=== PATIENT | female | born 1990 | race African-American/Black ===

== ENCOUNTER 2016-09-20 16:42 | Emergency (ER) | payer OTHER ==
[~2016-09-20] VITALS: Ht 160 cm; Wt 80.7 kg
[2016-09-20 16:52] VITALS: BP 117/75
[2016-09-20] MEDS ORDERED: Emitricitabine/Tenofovir 200/300mg tab PO ONE (17:30)
[2016-09-20] MEDS ORDERED: Dolutegravir Sodium 50mg tab ORAL ONE (17:30)
[2016-09-20] MEDS ORDERED: TIVICAY50 MG ORAL (17:32)
[2016-09-20] MEDS ORDERED: TRUVADA 200 MG1 EAC1 ORAL (17:32)
[2016-09-20 17:37] VITALS: BP 117/75
[2016-09-20 17:46] LABS: BASOPHILS % (AUTO) 1.4 % (0.0-2.0); EOSINOPHILS % (AUTO) 2.6 % (0.0-3.0); LYMPHOCYTES % (AUTO) 45.7 % (20.0-45.0); MEAN CORPUSCULAR HEMOGLOBIN 30.2 PG (27.0-31.0); MEAN CORPUSCULAR HGB CONC 33.2 G/DL (32.0-36.0); MEAN CORPUSCULAR VOLUME 91 FL (80-99); MONOCYTES % (AUTO) 6.6 % (1.0-10.0); NEUTROPHILS % (AUTO) 43.6 % (45.0-75.0); PLATELET COUNT 291 K/UL (150-450); RED BLOOD COUNT 4.71 M/UL (4.20-5.40); RED CELL DISTRIBUTION WIDTH 11.6 % (11.6-14.8); WHITE BLOOD COUNT 4.9 K/UL (4.8-10.8)
[2016-09-20 18:05] LABS: ALANINE AMINOTRANSFERASE 16 U/L (3-33); AMYLASE 54 U/L (10-110); ANION GAP 14 (5-15); ASPARTATE AMINO TRANSFERASE 17 U/L (5-40); BILIRUBIN,DIRECT 0.1 mg/dL (0.1-0.3); CALCIUM 9.3 mg/dL (8.6-10.2); CARBON DIOXIDE 26 mEQ/L (20-30); CHLORIDE 98 mEQ/L (98-107); CREATININE 0.8 mg/dL (0.5-0.9); GLOMERULAR FILTRATION RATE > 60 mL/min (>60); HEMOLYSIS 10; PHOSPHORUS 3.6 mg/dL (2.5-4.8); POTASSIUM 3.9 mEQ/L (3.4-4.9); SODIUM 138 mEQ/L (135-145); TOTAL PROTEIN 7.5 g/dL (6.6-8.7)
--- NOTE | 2016-09-20 19:23 | Emergency Room Report ---
History of Present Illness General Chief Complaint: General Complaint Source: Patient Present Illness HPI 26-year-old female presents ED for evaluation. Patient states that she was accidentally exposed to HIV today. States that she had sex with her partner who is HIV positive however the condom broke. Patient [facility] to [facility] today and had a rapid HIV test which was negative. Patient was told to come to ER for post exposure prophylaxis. Patient states she feels fine. Denies any fevers or chills. Denies nausea or vomiting. No aggravating relieving factors. Denies any other associated symptoms Allergies: Coded Allergies: No Known Allergies (Unverified , 09/20/16) Patient History Past Medical History: none Past Surgical History: none Pertinent Family History: none Social History: Denies: alcohol use, drug use, smoking Last Menstrual Period: 08/30/16 Now: No Immunizations: UTD Reviewed Nursing Documentation: PMH: Agreed, PSxH: Agreed Nursing Documentation-PMH Past Medical History: No Stated History Review of Systems All Other Systems: negative except mentioned in HPI Physical Exam Vital Signs Date Time Temp Pulse Resp B/P Pulse Ox O2 Delivery O2 Flow Rate FiO2 09/20/16 16:46 98.6 77 16 117/75 99 Room Air Sp02 EP Interpretation: reviewed, normal General Appearance: no apparent distress, alert, GCS 15, non-toxic Head: normocephalic Eyes: bilateral eye PERRL, bilateral eye normal inspection ENT: hearing grossly normal, normal pharynx, no angioedema, normal voice Neck: full range of motion, supple/symm/no masses Respiratory: chest non-tender, lungs clear, normal breath sounds, speaking full sentences Cardiovascular #1: regular rate, rhythm, no edema Cardiovascular #2: 2+ carotid (R), 2+ carotid (L), 2+ radial (R), 2+ radial (L) , 2+ dorsalis pedis (R), 2+ dorsalis pedis (L) Gastrointestinal: normal bowel sounds, non tender, soft, non-distended, no guarding, no rebound Rectal: deferred Genitourinary: normal inspection, no CVA tenderness Musculoskeletal: back normal, gait/station normal, normal range of motion, non- tender Neurologic: alert, oriented x3, responsive, motor strength/tone normal, sensory intact, speech normal Psychiatric: judgement/insight normal, memory normal, mood/affect normal, no suicidal/homicidal ideation Reflexes: 3+ bicep (R), 3+ bicep (L), 3+ tricep (R), 3+ tricep (L), 3+ knee (R) , 3+ knee (L) Skin: normal color, no rash, warm/dry, well hydrated Lymphatic: no adenopathy Medical Decision Making Diagnostic Impression: Primary Impression: Exposure to HIV ER Course 26-year-old female presents to ED for post exposure prophylaxis. Had intercourse with her boyfriend who is HIV positive Patient placed on stretcher. After initial history physical exam reveals a young female in no acute distress. Physical exam unremarkable. Agreed that patient should be started on post exposure prophylaxis. However I do explained to the patient that she does need baseline labs including LFTs. I ordered labs which included hepatitis panel and rapid HIV test. HIV test negative. I ordered patient truvada and tivicay here in ER. She will be given one month prescription for each medication. I explained to patient that she does the to followup with PMD or HIV clinic in about 2 weeks to have labs redrawn Diagnoses- exposure to HIV stable and discharged to home with Rx Truvada Tivicay. Followup with PMD/HIV clinic. Return to ED if symptoms recur or worsen Labs Test 09/20/16 17:18 White Blood Count 4.9 K/UL (4.8-10.8) Red Blood Count 4.71 M/UL (4.20-5.40) Hemoglobin 14.2 G/DL (12.0-16.0) Hematocrit 42.9 % (37.0-47.0) Mean Corpuscular Volume 91 FL (80-99) Mean Corpuscular Hemoglobin 30.2 PG (27.0-31.0) Mean Corpuscular Hemoglobin Concent 33.2 G/DL (32.0-36.0) Red Cell Distribution Width 11.6 % (11.6-14.8) Platelet Count 291 K/UL (150-450) Mean Platelet Volume 6.0 FL (6.5-10.1) Neutrophils (%) (Auto) 43.6 % (45.0-75.0) Lymphocytes (%) (Auto) 45.7 % (20.0-45.0) Monocytes (%) (Auto) 6.6 % (1.0-10.0) Eosinophils (%) (Auto) 2.6 % (0.0-3.0) Basophils (%) (Auto) 1.4 % (0.0-2.0) Urine HCG, Qualitative Negative Sodium Level 138 mEQ/L (135-145) Potassium Level 3.9 mEQ/L (3.4-4.9) Chloride Level 98 mEQ/L (98-107) Carbon Dioxide Level 26 mEQ/L (20-30) Anion Gap 14 (5-15) Blood Urea Nitrogen 12 mg/dL (7-23) Creatinine 0.8 mg/dL (0.5-0.9) Estimat Glomerular Filtration Rate > 60 mL/min (>60) Glucose Level 102 mg/dL (74-106) Calcium Level 9.3 mg/dL (8.6-10.2) Phosphorus Level 3.6 mg/dL (2.5-4.8) Total Bilirubin 0.3 mg/dL (0.0-1.2) Direct Bilirubin 0.1 mg/dL (0.1-0.3) Aspartate Amino Transf (AST/SGOT) 17 U/L (5-40) Alanine Aminotransferase (ALT/SGPT) 16 U/L (3-33) Alkaline Phosphatase 48 U/L (35-104) Total Protein 7.5 g/dL (6.6-8.7) Albumin 4.5 g/dL (3.5-5.2) Amylase Level 54 U/L (10-110) HIV (1&2) Antibody Rapid Negative (NEGATIVE) Last Vital Signs Date Time Temp Pulse Resp B/P Pulse Ox O2 Delivery O2 Flow Rate FiO2 09/20/16 17:37 98.6 80 16 117/75 99 Room Air Status: improved Disposition: HOME, SELF-CARE Condition: Stable Scripts Dolutegravir Sodium (Tivicay) 50 Mg Tablet 50 MG ORAL DAILY, #28 TAB Prov: JAYDEN MIRANDA M.D. 09/20/16 Emtricitabine/Tenofovir 200-300MG* (TRUVADA 200-300MG*) 1 Each Tablet 1 TAB ORAL DAILY, #28 TAB Prov: JAYDEN MIRANDA M.D. 09/20/16 Patient Instructions: HIV Antibody Test JAYDEN MIRANDA M.D. Sep 20, 2016 19:23
== END 2016-09-20 17:37 | disposition home or self-care (01) ==
LOC: EMR 17:06
DX: Z20.6 Contact with and (suspected) exposure to human immunodeficiency virus [HIV] (principal)
CPT/HCPCS: 36415; 80069; 80076; 81025; 82150; 85025; 86703; 86803; 87517; 99284

== ENCOUNTER 2016-11-12 18:15 | Emergency (ER) | payer OTHER ==
[~2016-11-12] VITALS: Ht 160 cm; Wt 77.1 kg
[~2016-11-12 18:15] MED LIST: TIVICAY50 MG ORAL; TRUVADA 200 MG1 EAC1 ORAL
--- NOTE | 2016-11-12 19:14 | Emergency Room Report ---
History of Present Illness General Chief Complaint: Female Urogenital Problems Source: Patient Present Illness HPI 26-year-old female presents to emergency Department complaining of right vaginal discharge with a foul smell x2 days. Patient denies recent unprotected intercourse. Patient reports history of Trichomonas. Patient denies itching. Patient reports frequency and mild urgency denies dysuria hematuria or vaginal bleeding. Patient denies . Patient denies nausea vomiting fevers or chills. She denies abdominal pain, rashes or vaginal lesions . Denies CP, Palpitations, LOC, AMS, dizziness, Changes in Vision, Sensation, paresthesias, or a sudden severe headache. Allergies: Coded Allergies: No Known Allergies (Unverified , 09/20/16) Patient History Past Medical History: see triage record Past Surgical History: none Pertinent Family History: none Now: No Immunizations: UTD Reviewed Nursing Documentation: PMH: Agreed, PSxH: Agreed Nursing Documentation-PMH Past Medical History: No Stated History Review of Systems All Other Systems: negative except mentioned in HPI Physical Exam Vital Signs Date Time Temp Pulse Resp B/P Pulse Ox O2 Delivery O2 Flow Rate FiO2 11/12/16 18:32 97.5 65 20 126/73 99 Room Air Sp02 EP Interpretation: reviewed, normal General Appearance: no apparent distress, alert, GCS 15, non-toxic Head: normocephalic, atraumatic Eyes: bilateral eye PERRL, bilateral eye normal inspection ENT: hearing grossly normal, normal pharynx, no angioedema, normal voice Neck: full range of motion, supple/symm/no masses Respiratory: chest non-tender, lungs clear, normal breath sounds, speaking full sentences Cardiovascular #1: regular rate, rhythm, no edema Gastrointestinal: normal bowel sounds, non tender, soft, no guarding, no rebound Rectal: deferred Genitourinary: normal inspection, no CVA tenderness, adnexa normal, bladder normal, cervix normal, other - no CMT, no strawberry cervix, white-yellow d/c noted. no lesions Musculoskeletal: back normal, gait/station normal, normal range of motion, non- tender, no calf tenderness Neurologic: alert, oriented x3, responsive, motor strength/tone normal, sensory intact, speech normal Psychiatric: judgement/insight normal, memory normal, mood/affect normal, no suicidal/homicidal ideation Skin: normal color, no rash, warm/dry, well hydrated Lymphatic: no adenopathy Medical Decision Making PA Attestation Dr. Lim is my supervising Physician whom patient management has been discussed with. Diagnostic Impression: Primary Impression: Vaginal discharge Additional Impressions: Trichomonas infection Bacterial vaginosis UTI (urinary tract infection) Qualified Codes: N30.00 - Acute cystitis without hematuria ER Course 26-year-old female presents to emergency Department complaining of right vaginal discharge with a foul smell x2 days. Patient denies recent unprotected intercourse. Patient reports history of Trichomonas. Patient denies itching. Patient reports frequency and mild urgency denies dysuria hematuria or vaginal bleeding. Patient denies . Patient denies nausea vomiting fevers or chills. She denies abdominal pain, rashes or vaginal lesions . -Pt .does not want to be tested for G&C or treated. Ddx considered but are not limited to UTi , STI, G & C, trichomonas, Vaginitis , cervicitis, Yeast, cellulitis. Vital signs: are WNL, pt. is afebrile H&PE are most consistent with vaginitis, will r/o trich and yeast. ORDERS: - UA: WBC's and bacteria indicating UTI -Wet mount: positive for Trich, clue cells, bacteria.. no yeast. ED INTERVENTIONS: -pt. does not want prophylactic G &C treatment. DISCHARGE: At this time pt. is stable for d/c to home. Will provide printed patient care instructions, and any necessary prescriptions. Care plan and follow up instructions have been discussed with the patient prior to discharge. Labs Test 11/12/16 18:30 Urine Color Pale yellow Urine Appearance Clear Urine pH 6 (4.5-8.0) Urine Specific [place] 1.010 (1.005-1.035) Urine Protein Negative (NEGATIVE) Urine Glucose (UA) Negative (NEGATIVE) Urine Ketones Negative (NEGATIVE) Urine Occult Blood Negative (NEGATIVE) Urine Nitrite Negative (NEGATIVE) Urine Bilirubin Negative (NEGATIVE) Urine Urobilinogen Normal MG/DL (0.0-1.0) Urine Leukocyte Esterase 2+ (NEGATIVE) Urine RBC 2-4 /HPF (0 - 2) Urine WBC 5-10 /HPF (0 - 2) Urine Squamous Epithelial Cells Moderate /LPF (NONE/OCC) Urine Bacteria Moderate /HPF (NONE) Last Vital Signs Date Time Temp Pulse Resp B/P Pulse Ox O2 Delivery O2 Flow Rate FiO2 11/12/16 18:32 97.5 65 20 126/73 99 Room Air Disposition: HOME, SELF-CARE Condition: Stable Scripts Fluconazole (FLUCONAZOLE) 100 Mg Tablet 100 MG ORAL DAILY for 2 Days, #2 TAB 0 Refills Prov: Pam Bryan 11/12/16 Metronidazole* (FLAGYL*) 500 Mg Tablet 500 MG ORAL BID for 7 Days, #14 TAB 0 Refills Prov: Pam Bryan 11/12/16 Nitrofurantoin Monohyd/M-Cryst* (MACROBID 100 MG*) 100 Mg Capsule 100 MG ORAL EVERY 12 HOURS for 5 Days, #10 CAP Prov: Pam Bryan 11/12/16 Patient Instructions: Bacterial Vaginosis, [id number], Trichomonas Test, Urinary Tract Infection Additional Instructions: Take medications as directed. Follow up with PCP/ OBGYN in 3-5 days Return sooner to ED if new symptoms occur, or current symptoms become worse. - Please note that this Emergency Department Report was dictated using [employer] support administrator technology software, occasionally this can lead to erroneous entry secondary to interpretation by the dictation equipment. Pam Bryan Nov 12, 2016 19:14
[2016-11-12 19:26] LABS: APPEARANCE,URINE CLEAR; KETONES,URINE NEGATIVE (NEGATIVE); LEUKOCYTE ESTERASE ,URINE 2+ (NEGATIVE); NITRITE,URINE NEGATIVE (NEGATIVE); PH,URINE 6 (4.5-8.0); PROTEIN,URINE NEGATIVE (NEGATIVE); UROBILINOGEN,URINE NORMAL MG/DL (0.0-1.0)
[2016-11-12 20:08] LABS: BACTERIA,URINE MODERATE /HPF; SQUAMOUS EPITHELIAL CELL,UR MODERATE /LPF (NONE/OCC)
[2016-11-12] MEDS ORDERED: NITROFURANTOIN100 M2 ORAL ×2 (20:34→20:47)
[2016-11-12] MEDS ORDERED: FLUCONAZOLE100 MG ORAL ×2 (20:34→20:47)
[2016-11-12] MEDS ORDERED: METRONIDAZOLE500 MG ORAL ×2 (20:34→20:47)
[2016-11-12 20:57] VITALS: BP 129/75
[2016-11-12 20:59] VITALS: BP 129/75
== END 2016-11-12 21:01 | disposition home or self-care (01) ==
LOC: EMR 19:45
DX: N76.0 Acute vaginitis (principal); B96.89 Other specified bacterial agents as the cause of diseases classified elsewhere; N30.00 Acute cystitis without hematuria
CPT/HCPCS: 81003; 87086; 87210; 99284

== ENCOUNTER 2017-01-08 18:56 | Emergency (ER) | payer OTHER ==
[~2017-01-08] VITALS: Ht 160 cm; Wt 78.9 kg
[~2017-01-08 18:56] MED LIST changes: +FLUCONAZOLE100 MG ORAL; +METRONIDAZOLE500 MG ORAL; +NITROFURANTOIN100 M2 ORAL
[2017-01-08] MEDS ORDERED: NKM (19:20)
[2017-01-08 19:30] VITALS: BP 119/76
[2017-01-08] MEDS ORDERED: AMOXICILLIN500 MG ORAL (19:35)
[2017-01-08 19:47] VITALS: BP 119/76
--- NOTE | 2017-01-08 21:51 | Emergency Room Report ---
History of Present Illness General Chief Complaint: Sore Throat Source: Patient Present Illness [facility] The patient is a 26-year-old female presenting for sore throat for the past 2 days. She denies any sick contacts or recent travel. Pain is described as an 8 /10 dull ache to the back of the throat and does not radiate. It is worse with swallowing. She denies any other symptoms including fever, chills, productive cough, shortness of breath Allergies: Coded Allergies: No Known Allergies (Unverified , 09/20/16) Patient History Past Medical History: see triage record Pertinent Family History: none Last Menstrual Period: December Reviewed Nursing Documentation: PMH: Agreed, PSxH: Agreed Nursing Documentation-PMH Past Medical History: No Stated History Review of Systems All Other Systems: negative except mentioned in HPI Physical Exam Vital Signs Date Time Temp Pulse Resp B/P Pulse Ox O2 Delivery O2 Flow Rate FiO2 01/08/17 19:14 98.6 77 16 119/76 98 Room Air Sp02 EP Interpretation: reviewed, normal General Appearance: no apparent distress, alert, GCS 15, non-toxic Head: normocephalic, atraumatic Eyes: bilateral eye PERRL, bilateral eye normal inspection ENT: hearing grossly normal, no angioedema, normal voice, tonsillar swelling, pharyngeal erythema Neck: full range of motion, supple/symm/no masses Respiratory: chest non-tender, lungs clear, normal breath sounds, no wheezing, speaking full sentences Cardiovascular #1: regular rate, rhythm, no edema Musculoskeletal: back normal, gait/station normal, normal range of motion, non- tender Neurologic: alert, oriented x3, responsive, motor strength/tone normal, sensory intact, speech normal Psychiatric: judgement/insight normal, memory normal, mood/affect normal, no suicidal/homicidal ideation Skin: normal color, no rash, warm/dry, well hydrated Lymphatic: adenopathy Medical Decision Making PA Attestation Dr. Lim is my supervising physician. Patient management was discussed with my supervising physician Diagnostic Impression: Primary Impression: Pharyngitis, acute Qualified Codes: J02.9 - Acute pharyngitis, unspecified ER Course The patient is a 26-year-old female presenting for sore throat for the past 2 days Differential diagnosis include but not limited to pharyngitis, sinusitis, AOM, bronchitis, PNA Physical exam: Vitals within normal limits. Afebrile. No apparent distress HEENT exam: There is bilateral tonsillar edema, erythema Uvula midline. Moist mucous membranes. There is bilateral cervical lymphadenopathy. Lungs are clear to auscultation bilaterally Skin is warm and dry. No rash The patient will be discharged home with a prescription for amoxicillin and is given ER precautions. Patient will followup with primary care Last Vital Signs Date Time Temp Pulse Resp B/P Pulse Ox O2 Delivery O2 Flow Rate FiO2 01/08/17 19:30 98.6 16 119/76 98 Room Air 01/08/17 19:14 77 Status: improved Disposition: HOME, SELF-CARE Condition: Improved Scripts Amoxicillin* (AMOXIL*) 500 Mg Capsule 500 MG ORAL Q12HR, #20 CAP Prov: HORACIO PIERCE 01/08/17 Referrals: [facility] (PCP) Patient Instructions: Sore Throat Additional Instructions: I discussed my findings with the patient. All questions and concerns have been answered. Treatment and medication compliance have been addressed. I advised the patient that they need to follow up with PMD in 3-5 days. Return to ED if pain remains or worsens, cough worsens or remains, you notice blood in your sputum, you notice wheezing, you experience a fever, or if needed for any reason. Patient verbalized understanding of discharge instructions. HORACIO PIERCE January 08, 2017 21:51
== END 2017-01-08 19:47 | disposition home or self-care (01) ==
LOC: EMR 19:45
DX: J02.9 Acute pharyngitis, unspecified (principal)
CPT/HCPCS: 99283

== ENCOUNTER 2017-01-27 20:40 | Emergency (ER) | payer OTHER ==
[~2017-01-27] VITALS: Ht 160 cm; Wt 79.4 kg
[~2017-01-27 20:40] MED LIST changes: +AMOXICILLIN500 MG ORAL; +NKM
[2017-01-27 21:00] VITALS: BP 126/78
[2017-01-27] MEDS ORDERED: Emitricitabine/Tenofovir 200/300mg tab ORAL ONE (21:15)
[2017-01-27] MEDS ORDERED: Isentress 400mg tab ORAL ONE (21:15)
[2017-01-27] MEDS ORDERED: TRUVADA 200 MG1 EAC1 ORAL (21:26)
[2017-01-27] MEDS ORDERED: ISENTRESS100 MG ORAL (21:26)
--- NOTE | 2017-01-27 21:26 | Emergency Room Report ---
History of Present Illness General Chief Complaint: General Complaint Source: Patient Present Illness HPI Is a 26-year-old female with no past medical history. She presents with chief complaint of HIV exposure. She's been sexually active with her boyfriend for almost a year. He is HIV positive but not on medication. Supposedly his viral load is undetectable. 40 hours ago they had sexual intercourse. He was wearing a condom but it broke. Patient has no other symptom. Here for HIV medication. She had a before without any side effects. Allergies: Coded Allergies: No Known Allergies (Unverified , 09/20/16) Patient History Past Medical History: none, see triage record, old chart reviewed Past Surgical History: none Pertinent Family History: none Social History: Denies: smoking Last Menstrual Period: yesterday Now: No Immunizations: other Reviewed Nursing Documentation: PMH: Agreed, PSxH: Agreed Nursing Documentation-PMH Past Medical History: No Stated History Review of Systems Eye: Denies: blurred vision, eye pain ENT: Denies: ear pain, nose congestion, throat swelling Respiratory: Denies: cough, shortness of breath Cardiovascular: Denies: chest pain, palpitations Gastrointestinal: Denies: abdominal pain, diarrhea, nausea, vomiting Musculoskeletal: Denies: back pain, joint pain Skin: Denies: rash Neurological: Denies: headache, numbness Endocrine: Denies: increased thirst, increased urine Hematologic/Lymphatic: Denies: easy bruising All Other Systems: negative except mentioned in HPI Physical Exam Vital Signs Date Time Temp Pulse Resp B/P Pulse Ox O2 Delivery O2 Flow Rate FiO2 01/27/17 20:48 98.4 68 16 126/78 98 Room Air vitals normal Sp02 EP Interpretation: reviewed, normal General Appearance: well appearing, no apparent distress, alert Head: normocephalic, atraumatic Eyes: bilateral eye EOMI, bilateral eye PERRL ENT: hearing grossly normal, normal pharynx Neck: full range of motion, supple, no meningismus Respiratory: chest non-tender, lungs clear, normal breath sounds Cardiovascular #1: regular rate, rhythm, no murmur Gastrointestinal: normal bowel sounds, non tender, no mass, no organomegaly, no bruit, non-distended Musculoskeletal: back normal, gait/station normal, normal range of motion Psychiatric: mood/affect normal Skin: warm/dry Medical Decision Making Diagnostic Impression: Primary Impression: Exposure to HIV ER Course She with HIV exposure. Will go ahead and put on PEP. We'll DC home Last Vital Signs Date Time Temp Pulse Resp B/P Pulse Ox O2 Delivery O2 Flow Rate FiO2 01/27/17 20:48 98.4 68 16 126/78 98 Room Air Status: unchanged Disposition: HOME, SELF-CARE Condition: Stable Scripts Raltegravir Potassium (ISENTRESS) 100 Mg Tab.chew 100 MG ORAL TWICE A DAY, #60 TAB Prov: NAN GARRIDO M.D. 01/27/17 Emtricitabine/Tenofovir 200-300MG* (TRUVADA 200-300MG*) 1 Each Tablet 1 TAB ORAL DAILY, #30 TAB Prov: NAN GARRIDO M.D. 01/27/17 Referrals: [facility] (PCP) Additional Instructions: Followup with your doctor or clinic for recheck any HIV status. Return if symptom worsen. Followup in one week. NAN GARRIDO M.D. January 27, 2017 21:26
[2017-01-27 21:40] VITALS: BP 126/78
== END 2017-01-27 21:40 | disposition home or self-care (01) ==
LOC: EMR 21:13
DX: Z20.6 Contact with and (suspected) exposure to human immunodeficiency virus [HIV] (principal)
CPT/HCPCS: 86703; 99284

== ENCOUNTER 2017-04-20 17:37 | Emergency (ER) | payer OTHER ==
[~2017-04-20] VITALS: Ht 152.4 cm; Wt 81.6 kg
[~2017-04-20 17:37] MED LIST changes: +ISENTRESS100 MG ORAL
[2017-04-20 17:48] VITALS: BP 117/73
[2017-04-20 18:43] LABS: APPEARANCE,URINE CLEAR; KETONES,URINE NEGATIVE (NEGATIVE); LEUKOCYTE ESTERASE ,URINE 1+ (NEGATIVE); NITRITE,URINE NEGATIVE (NEGATIVE); PH,URINE 6 (4.5-8.0); PROTEIN,URINE NEGATIVE (NEGATIVE); UROBILINOGEN,URINE NORMAL MG/DL (0.0-1.0)
[2017-04-20 18:59] LABS: BACTERIA,URINE FEW /HPF; RBC,URINE 0-2 /HPF (0 - 2); SQUAMOUS EPITHELIAL CELL,UR FEW /LPF (NONE/OCC)
--- NOTE | 2017-04-20 19:08 | Emergency Room Report ---
History of Present Illness General Chief Complaint: Vaginal Source: Patient Present Illness HPI 27-year-old female presents to the emergency department complaining of yellow vaginal discharge with itching, and strong odor x 2 days. Patient reports recent antibiotic use approximately 2 months ago. Patient denies recent unprotected intercourse. Patient denies . Patient denies swollen palpable tender lymph nodes, lesions, rash, abdominal pain, joint pain. She denies dysuria, frequency, hematuria, fevers, chills, nausea, vomiting or . denies hx of STDs. She reports history of atrial vaginosis in the past and is requesting vaginal creams if rx's are necessary. Denies CP, Palpitations, LOC, AMS, dizziness, Changes in Vision, Sensation, paresthesias, or a sudden severe headache. Allergies: Coded Allergies: No Known Allergies (Unverified , 09/20/16) Patient History Past Medical History: see triage record Past Surgical History: none Pertinent Family History: none Last Menstrual Period: last month Now: No Immunizations: UTD Reviewed Nursing Documentation: PMH: Agreed, PSxH: Agreed Nursing Documentation-PMH Past Medical History: No Stated History Review of Systems All Other Systems: negative except mentioned in HPI Physical Exam Vital Signs Date Time Temp Pulse Resp B/P Pulse Ox O2 Delivery O2 Flow Rate FiO2 04/20/17 17:48 98.2 68 18 117/73 98 Room Air Sp02 EP Interpretation: reviewed, normal General Appearance: no apparent distress, alert, GCS 15, non-toxic Head: normocephalic, atraumatic Eyes: bilateral eye PERRL, bilateral eye normal inspection ENT: hearing grossly normal, normal voice Neck: full range of motion Respiratory: lungs clear, normal breath sounds, speaking full sentences Cardiovascular #1: regular rate, rhythm Gastrointestinal: normal bowel sounds, non tender, soft, non-distended, no guarding, no rebound Rectal: deferred Genitourinary: normal inspection, no CVA tenderness, adnexa normal, cervix normal, ext genitalia/vag normal, uterus normal, other - thin yellow-white opaque d/c in the vaginal vault, no CMT. no external lesions or rashes Musculoskeletal: back normal, gait/station normal, normal range of motion, non- tender Neurologic: alert, oriented x3, responsive, motor strength/tone normal, sensory intact, speech normal Psychiatric: judgement/insight normal, memory normal, mood/affect normal Skin: normal color, no rash, warm/dry, well hydrated Lymphatic: no adenopathy Medical Decision Making PA Attestation Dr. Posey is my supervising Physician whom patient management has been discussed with. Diagnostic Impression: Primary Impression: Bacterial vaginosis ER Course 27-year-old female presents to the emergency department complaining of yellow vaginal discharge with itching, and strong odor x 2 days. Patient reports recent antibiotic use approximately 2 months ago. Patient denies recent unprotected intercourse. Patient denies . Patient denies swollen palpable tender lymph nodes, lesions, rash, abdominal pain, joint pain. She denies dysuria, frequency, hematuria, fevers, chills, nausea, vomiting or . denies hx of STDs. She reports history of atrial vaginosis in the past and is requesting vaginal creams if rx's are necessary. Denies CP, Palpitations, LOC, AMS, dizziness, Changes in Vision, Sensation, paresthesias, or a sudden severe headache. Ddx considered but are not limited to UTi , Pyelo, STI, Stone, Cystitis, vaginal laceration, vaginitis. Vital signs: are WNL, pt. is afebrile H& PE are most consistent with: possible BV or yeast vaginitis. ORDERS: - UA labs are attached: unremarkable no evidence of urinary tract infection. -Hcg negative -Vaginal Wet Mount: Mod. WBC, mod clue cells, moderate bacteria, no yeast, no trich, -- Consistent with bacterial vaginosis ED INTERVENTIONS: None required at this time. DISCHARGE: At this time pt. is stable for d/c to home. Will provide printed patient care instructions, and any necessary prescriptions. Care plan and follow up instructions have been discussed with the patient prior to discharge. Labs Test 04/20/17 17:52 Urine Color Pale yellow Urine Appearance Clear Urine pH 6 (4.5-8.0) Urine Specific [place] 1.015 (1.005-1.035) Urine Protein Negative (NEGATIVE) Urine Glucose (UA) Negative (NEGATIVE) Urine Ketones Negative (NEGATIVE) Urine Occult Blood Negative (NEGATIVE) Urine Nitrite Negative (NEGATIVE) Urine Bilirubin Negative (NEGATIVE) Urine Urobilinogen Normal MG/DL (0.0-1.0) Urine Leukocyte Esterase 1+ (NEGATIVE) Urine RBC 0-2 /HPF (0 - 2) Urine WBC 2-4 /HPF (0 - 2) Urine Squamous Epithelial Cells Few /LPF (NONE/OCC) Urine Bacteria Few /HPF (NONE) Urine HCG, Qualitative Negative Last Vital Signs Date Time Temp Pulse Resp B/P Pulse Ox O2 Delivery O2 Flow Rate FiO2 04/20/17 17:48 98.2 68 18 117/73 98 Room Air Disposition: HOME, SELF-CARE Condition: Stable Scripts Metronidazole* (METROGEL-VAGINAL*) 70 Gm Gel.w.appl 1 APPL VAGIN EVERY 12 HOURS for 5 Days, #70 GM Prov: Pam Bryan 04/20/17 Referrals: [facility] (PCP) Patient Instructions: Bacterial Vaginosis Additional Instructions: Take medications as directed. Follow up with a Primary Care Provider in 3-5 days, even if your symptoms have resolved. --Please review list of primary care clinics, if you do not already have a primary care provider Return sooner to ED if new symptoms occur, or current symptoms become worse. - Please note that this Emergency Department Report was dictated using [employer] fixer technology software, occasionally this can lead to erroneous entry secondary to interpretation by the dictation equipment. Pam Bryan Apr 20, 2017 19:08
[2017-04-20] MEDS ORDERED: METROGEL-VAGINA70 G1 VAGIN (19:09)
[2017-04-20 19:20] VITALS: BP 117/73
== END 2017-04-20 19:20 | disposition home or self-care (01) ==
LOC: EMR 18:00
DX: N76.0 Acute vaginitis (principal)
CPT/HCPCS: 58999; 81003; 81025; 87210; 99283

== ENCOUNTER 2017-07-07 22:53 | Emergency (ER) | payer OTHER ==
[~2017-07-07] VITALS: Ht 162.6 cm; Wt 81.6 kg
[~2017-07-07 22:53] MED LIST changes: +METROGEL-VAGINA70 G1 VAGIN
[2017-07-07 23:58] VITALS: BP 113/70
--- NOTE | 2017-07-08 03:26 | Emergency Room Report ---
History of Present Illness General Chief Complaint: Earache Source: Patient Present Illness HPI 27YOF with 2 days right ear pain Pain is intermittent No fever/chills, sore throat, headache, chest pain, SOB No history of frequent ear infection or use of Qtips for hygiene Allergies: Coded Allergies: No Known Allergies (Unverified , 09/20/16) Patient History Past Medical History: none Past Surgical History: none Pertinent Family History: none Social History: Denies: smoking, alcohol use, drug use Last Menstrual Period: Jun 24 Now: No : 1 Immunizations: UTD Reviewed Nursing Documentation: PMH: Agreed, PSxH: Agreed Nursing Documentation-PMH Past Medical History: No Stated History Review of Systems All Other Systems: negative except mentioned in HPI Physical Exam Vital Signs Date Time Temp Pulse Resp B/P (MAP) Pulse Ox O2 Delivery O2 Flow Rate FiO2 07/07/17 22:57 97.2 83 20 113/70 98 Sp02 EP Interpretation: reviewed, normal General Appearance: normal inspection, well appearing, no apparent distress, alert Head: atraumatic ENT: normal ENT inspection, hearing grossly normal, normal pharynx, no angioedema, normal voice, TMs + canals normal, uvula midline Neck: normal inspection, full range of motion, supple, no bony tend Respiratory: normal inspection, lungs clear, normal breath sounds, no respiratory distress, no retraction, no wheezing Cardiovascular #1: regular rate, rhythm, no edema Gastrointestinal: normal inspection, normal bowel sounds, non tender, soft, no guarding, no hernia Genitourinary: no CVA tenderness Musculoskeletal: normal inspection, back normal, normal range of motion, Douglas' s Sign negative Neurologic: normal inspection, alert, responsive, speech normal Psychiatric: normal inspection, judgement/insight normal, mood/affect normal Skin: normal inspection, normal color, no rash Medical Decision Making Diagnostic Impression: Primary Impression: Earache, right ER Course VSS. Afebrile No sign of bacterial infection in ears/oropharynx Reassured patient Advised Motrin as needed for pain PMD followup as needed DC home Last Vital Signs Date Time Temp Pulse Resp B/P (MAP) Pulse Ox O2 Delivery O2 Flow Rate FiO2 07/07/17 23:58 97.2 20 113/70 98 07/07/17 23:58 83 Status: improved Disposition: HOME, SELF-CARE Condition: Improved Referrals: [facility] (PCP) Patient Instructions: JAYSHREE Magaña M.D. Jul 08, 2017 03:26
== END 2017-07-07 23:58 | disposition home or self-care (01) ==
LOC: EMR 23:46
DX: H92.01 Otalgia, right ear (principal)
CPT/HCPCS: 99283

== ENCOUNTER 2017-11-11 14:14 | Emergency (ER) | payer OTHER ==
[~2017-11-11] VITALS: Ht 162.6 cm; Wt 81.6 kg
--- NOTE | 2017-11-11 15:26 | Emergency Room Report ---
History of Present Illness General Chief Complaint: Skin Rash/Abscess Source: Patient Present Illness HPI 27 YO female presents to the ED C/O rash between breasts, darkened hyperpigmentation, intermittently itching. Denies lesions/rashes elsewhere on the body. Denies new medications or body washes or creams. Denies swelling of the lips, tongue , throat or airway. Denies wheezing, or shortness of breath. Denies recent travel, recent illness or ill contacts. denies blisters, oral lesions, or sloughing of the skin. Allergies: Coded Allergies: No Known Allergies (Unverified , 09/20/16) Patient History Past Medical History: see triage record Past Surgical History: none Pertinent Family History: none Last Menstrual Period: 10/16/17 Now: No : 1 Para: 0 Reviewed Nursing Documentation: PMH: Agreed, PSxH: Agreed Nursing Documentation-PMH Past Medical History: No Stated History Review of Systems All Other Systems: negative except mentioned in HPI Physical Exam Vital Signs Date Time Temp Pulse Resp B/P (MAP) Pulse Ox O2 Delivery O2 Flow Rate FiO2 11/11/17 14:47 98.0 7 18 113/71 99 Room Air 98.1 Sp02 EP Interpretation: reviewed, normal General Appearance: no apparent distress, alert, GCS 15, non-toxic Head: normocephalic, atraumatic ENT: hearing grossly normal, no angioedema, normal voice Neck: full range of motion Respiratory: lungs clear, normal breath sounds, no respiratory distress, no wheezing, speaking full sentences Cardiovascular #1: regular rate, rhythm Musculoskeletal: back normal, gait/station normal, normal range of motion, non- tender Neurologic: alert, oriented x3, responsive, motor strength/tone normal, sensory intact, speech normal, grossly normal Psychiatric: judgement/insight normal Skin: normal color, warm/dry, well hydrated, rash - localized well circumscribed hyperpigmented plaque on the anterior chest midline and extends just under each breast. no excoriations, vesicles or blisters. no lesions idenitfied elsewhere. Lymphatic: no adenopathy Medical Decision Making PA Attestation Dr. Lucas is my supervising Physician whom patient management has been discussed with. Diagnostic Impression: Primary Impression: Rash and other nonspecific skin eruption ER Course 27 YO female presents to the ED C/O rash between breasts, darkened hyperpigmentation, intermittently itching. Denies lesions/rashes elsewhere on the body. Denies new medications or body washes or creams. Denies swelling of the lips, tongue , throat or airway. Denies wheezing, or shortness of breath. Denies recent travel, recent illness or ill contacts. denies blisters, oral lesions, or sloughing of the skin. Ddx considered but are not limited to cellulitis, scabies, shingles, varicella, dermatitis, urticaria, eczema, tinea, viral exanthem, SJS Vital signs: are WNL, pt. is afebrile H&PE are most consistent with well circumscribed hyperpigmented plaque will treat for exczema and cover fungi due to anular appearance. ORDERS: none required at this time, the diagnosis is clinical ED INTERVENTIONS: None required at this time. will D/c with triamcinolone and nystatin cream. d/w pt. dermatology follow-up. DISCHARGE: At this time pt. is stable for d/c to home. Will provide printed patient care instructions, and any necessary prescriptions. Care plan and follow up instructions have been discussed with the patient prior to discharge. Last Vital Signs Date Time Temp Pulse Resp B/P (MAP) Pulse Ox O2 Delivery O2 Flow Rate FiO2 11/11/17 14:47 98.0 7 18 113/71 99 Room Air 98.1 Disposition: HOME, SELF-CARE Condition: Stable Scripts Triamcinolone Acet (Triamcinolone Acetonide) 15 Gm Cream..g. 1 APPLIC APPLIC BID, #15 GM 1 Refill Prov: Pam Bryan 11/11/17 Nystatin* (NYSTATIN*) 15 Gm Cream..g. 1 APPLIC TOPIC THREE TIMES A DAY, #15 GM 1 Refill Prov: Pam Bryan.A. 11/11/17 Patient Instructions: Rash Additional Instructions: Take medications as directed. If you notice significant worsening of the rash after using Triamcinolone Discontinue immediately and only use anti-fungal cream. Follow up with a Primary Care Provider or [facility] in 3-5 days, even if your symptoms have resolved. --Please review list of primary care clinics, if you do not already have a primary care provider Return sooner to ED if new symptoms occur, or current symptoms become worse. - Please note that this Emergency Department Report was dictated using [employer] consultant technology software, occasionally this can lead to erroneous entry secondary to interpretation by the dictation equipment. Pam Bryan Nov 11, 2017 15:26
[2017-11-11] MEDS ORDERED: NYSTATIN15 GM TOPIC (15:27)
[2017-11-11] MEDS ORDERED: KENALOG 0.5% CR15 GM APPLIC (15:27)
[2017-11-11 15:34] VITALS: BP 108/70
== END 2017-11-11 15:35 | disposition home or self-care (01) ==
LOC: EMR 15:18
DX: R21 Rash and other nonspecific skin eruption (principal)
CPT/HCPCS: 99284

== ENCOUNTER 2018-07-31 09:31 | Emergency (ER) | payer SELFPAY ==
[~2018-07-31] VITALS: Ht 162.6 cm; Wt 88.5 kg
[~2018-07-31 09:31] MED LIST changes: +KENALOG 0.5% CR15 GM APPLIC; +NYSTATIN15 GM TOPIC
[2018-07-31 09:43] VITALS: BP 119/71
[2018-07-31 10:04] LABS: APPEARANCE,URINE SLIGHTLY CLOUDY; BILIRUBIN, URINE NEGATIVE (NEGATIVE); COLOR,URINE PALE YELLOW; GLUCOSE, URINE (UA) NEGATIVE (NEGATIVE); KETONES,URINE NEGATIVE (NEGATIVE); LEUKOCYTE ESTERASE ,URINE 3+ (NEGATIVE); NITRITE,URINE NEGATIVE (NEGATIVE); PH,URINE 5 (4.5-8.0); PROTEIN,URINE NEGATIVE (NEGATIVE); UROBILINOGEN,URINE NORMAL MG/DL (0.0-1.0)
--- NOTE | 2018-07-31 12:22 | Emergency Room Report ---
History of Present Illness General Chief Complaint: Vaginal Source: Patient Present Illness HPI Patient presents with vaginal discharge for 3 days. She denies any dysuria. It 's white and also fairly clear with foul odor. She's had this problem once before and was told she had vaginosis. Shee was treated with creams. Last menstrual period June 18. Pap within the last year "had some minor abnormality" which she has not follow up on. No fevers, chills, abdominal pain, NVD, rashes, cough, sore throat, headache, anxiety. In December 2016 she was exposed to HIV and put on PEP. Barrier contraception broke with boyfriend who was HIV +. She has HIV meds listed on her Med Recon. Allergies: Coded Allergies: No Known Allergies (Unverified , 07/31/18) Patient History Past Medical History: see triage record Social History: Denies: smoking Social History Narrative co founder and chairman Last Menstrual Period: 06/08/2018 Now: No Reviewed Nursing Documentation: PMH: Agreed; PSxH: Agreed Nursing Documentation-PMH Past Medical History: No Stated History Review of Systems All Other Systems: negative except mentioned in HPI Physical Exam Vital Signs Date Time Temp Pulse Resp B/P (MAP) Pulse Ox O2 Delivery O2 Flow Rate FiO2 07/31/18 09:33 98.2 87 12 119/71 99 Room Air Sp02 EP Interpretation: reviewed, normal General Appearance: well appearing, no apparent distress, GCS 15 Head: normocephalic Eyes: bilateral eye normal inspection, bilateral eye PERRL ENT: moist mucus membranes Neck: supple Respiratory: lungs clear, normal breath sounds Cardiovascular #1: regular rate, rhythm Cardiovascular #2: 2+ radial (R) Gastrointestinal: normal inspection, normal bowel sounds, non tender, no mass, non-distended Genitourinary: no CVA tenderness, other - whit and fraser vaginal d/c, minimal inflammation. External exam only. Musculoskeletal: back normal, gait/station normal, normal range of motion Neurologic: alert, oriented x3, grossly normal Psychiatric: mood/affect normal Skin: normal inspection, warm/dry Medical Decision Making Diagnostic Impression: Primary Impression: Vaginal discharge Additional Impression: UTI (urinary tract infection) Qualified Codes: N30.00 - Acute cystitis without hematuria ER Course Patient with vaginal discharge. DDX yeast, gardnerella, trich, UTI amongst others. Need to exclude . UA with pyuria. Wet mount not identify cause, but based on character of discharge, concern for vaginosis. Discussed findings with patient and need for follow up with Electronic Scanner Operator. Patient stable for outpatient observation and treatment. Laboratory Tests Test 07/31/18 09:50 Urine Color Pale yellow Urine Appearance Slightly cloudy Urine pH 5 (4.5-8.0) Urine Specific [place] 1.015 (1.005-1.035) Urine Protein Negative (NEGATIVE) Urine Glucose (UA) Negative (NEGATIVE) Urine Ketones Negative (NEGATIVE) Urine Blood 1+ (NEGATIVE) H Urine Nitrite Negative (NEGATIVE) Urine Bilirubin Negative (NEGATIVE) Urine Urobilinogen Normal MG/DL (0.0-1.0) Urine Leukocyte Esterase 3+ (NEGATIVE) H Urine RBC 5-10 /HPF (0 - 2) H Urine WBC Tntc /HPF (0 - 2) H Urine Squamous Epithelial Cells Many /LPF (NONE/OCC) H Urine Bacteria Many /HPF (NONE) H Urine HCG, Qualitative Negative (NEGATIVE) Microbiology Date/Time Source Procedure Growth Status 07/31/18 10:40 Vaginal Wet Prep - Final Complete Last Vital Signs Date Time Temp Pulse Resp B/P (MAP) Pulse Ox O2 Delivery O2 Flow Rate FiO2 07/31/18 12:29 98.0 77 15 122/75 99 Room Air Status: improved Disposition: HOME, SELF-CARE Condition: Improved Scripts Metronidazole* (FLAGYL*) 500 Mg Tablet 500 MG ORAL TID, #20 TAB Prov: Arnulfo Posey MD 07/31/18 Nitrofurantoin Monohyd/M-Cryst* (MACROBID 100 MG*) 100 Mg Capsule 100 MG ORAL EVERY 12 HOURS, #14 CAP Prov: Arnulfo Posey MD 07/31/18 Referrals: NOT CHOSEN [facility]/,REFERRING (PCP) Arnulfo Posey MD Jul 31, 2018 12:22
[2018-07-31] MEDS ORDERED: METRONIDAZOLE500 MG ORAL (12:24)
[2018-07-31] MEDS ORDERED: NITROFURANTOIN100 M2 ORAL (12:24)
[2018-07-31 12:29] VITALS: BP 122/75
[2018-07-31] MEDS ORDERED: metroNIDAZOLE 500mg tab ORAL ONE (12:30)
== END 2018-07-31 12:29 | disposition home or self-care (01) ==
LOC: EMR 09:54
DX: N30.00 Acute cystitis without hematuria (principal)
CPT/HCPCS: 81003; 81025; 87086; 87210; 99283

== ENCOUNTER 2019-02-16 20:54 | Emergency (ER) | payer MEDICAID, OTHER ==
[~2019-02-16] VITALS: Ht 160 cm; Wt 87.5 kg
--- NOTE | 2019-02-16 21:20 | NUR ---
ED Nurse Note: PATIENT AMBULATED TO ED WITH RIGHT EARACHE X1 DAY. Pt is AO x 4times, VSS, on room air no distress. ERMD seen Pt at bedside.
[2019-02-16 21:21] VITALS: BP 132/77
[2019-02-16] MEDS ORDERED: OFLOXACIN5 ML RIGHT EAR (21:21)
[2019-02-16 21:27] VITALS: BP 132/77
--- NOTE | 2019-02-16 21:28 | NUR ---
ER DISCHARGE NOTE: Patient is cleared to be discharged per ERMD, pt is aox4, on room air, with stable vital signs. pt was given dc and prescription instructions, pt was able to verbalize understanding, pt id band removed without complications. pt is able to ambulate with steady gait. pt took all belongings.
--- NOTE | 2019-02-17 00:02 | Emergency Room Report ---
History of Present Illness General Chief Complaint: Earache Source: Patient Present Illness HPI 28-year-old female presents ED complaining of right ear pain. Started today. Pain is throbbing, 6 out of 10, nonradiating. Denies fevers or chills. Denies cough. Denies sore throat. Denies sick contacts or recent travel. No other aggravating relieving factors. Denies any other associated symptoms Allergies: Coded Allergies: No Known Allergies (Unverified , 07/31/18) Patient History Past Medical History: none Past Surgical History: none Pertinent Family History: none Social History: Denies: smoking, alcohol use, drug use Last Menstrual Period: 02/07/19 Now: No Immunizations: UTD Reviewed Nursing Documentation: PMH: Agreed; PSxH: Agreed Nursing Documentation-PMH Past Medical History: No Stated History Review of Systems All Other Systems: negative except mentioned in HPI Physical Exam Vital Signs Date Time Temp Pulse Resp B/P (MAP) Pulse Ox O2 Delivery O2 Flow Rate FiO2 02/16/19 20:56 98.2 73 14 122/68 (86) 98 Room Air Sp02 EP Interpretation: reviewed, normal General Appearance: no apparent distress, alert, GCS 15, non-toxic Head: normocephalic Eyes: bilateral eye normal inspection, bilateral eye PERRL ENT: hearing grossly normal, normal pharynx, no angioedema, normal voice, other - R ear canal erythematous/swollen/TTP Neck: full range of motion, supple, no meningismus, supple/symm/no masses Respiratory: normal inspection Cardiovascular #1: normal inspection Gastrointestinal: normal inspection Rectal: deferred Genitourinary: no CVA tenderness Musculoskeletal: normal inspection Neurologic: alert, oriented x3, responsive, motor strength/tone normal, sensory intact, speech normal Psychiatric: normal inspection Skin: normal inspection Lymphatic: normal inspection Medical Decision Making Diagnostic Impression: Primary Impression: Otitis externa Qualified Codes: H60.501 - Unspecified acute noninfective otitis externa, right ear ER Course Hospital Course 28-year-old F presents to ED with pain R ear. Differential diagnoses include: TM perforation, otitis externa, otitis media Clinical course Patient placed on stretcher. After initial history, physical exam reveals a female in no acute distress. R TM ok, ear canal swallows and erythematous and tender to palpation. Left TM unremarkable. Consistent with otitis externa. Discussed findings with patient. Discharged with otic antibiotics. Safe for discharge for close outpatient follow-up. Does not have a PMD. Will provide referrals Diagnosis - otitis externa Stable and discharged to home with Rx ofloxacin otic. Followup with PMD. Return to ED if symptoms recur or worsen Last Vital Signs Date Time Temp Pulse Resp B/P (MAP) Pulse Ox O2 Delivery O2 Flow Rate FiO2 02/16/19 21:27 98.6 77 16 132/77 98 Room Air Status: improved Disposition: HOME, SELF-CARE Condition: Stable Scripts Ofloxacin (OFLOXACIN) 5 Ml Drops 10 DROP RIGHT EAR DAILY for 7 Days, ML Prov: Jose Cordova MD 02/16/19 Referrals: Jamee Sauceda [facility] Patient Instructions: Otitis Externa, [id number] Jose Cordova MD Feb 17, 2019 00:02
== END 2019-02-17 00:13 | disposition home or self-care (01) ==
LOC: EMR 21:17
DX: H60.501 Unspecified acute noninfective otitis externa, right ear (principal)
CPT/HCPCS: 99282

== ENCOUNTER 2019-04-06 20:58 | Emergency (ER) | payer MEDICAID ==
[~2019-04-06] VITALS: Ht 160 cm; Wt 88.5 kg
[~2019-04-06 20:58] MED LIST changes: +OFLOXACIN5 ML RIGHT EAR
--- NOTE | 2019-04-06 21:07 | NUR ---
ED Nurse Note: PT CAME TO ED C/O YELLOW DISCHARGE X 2 DAYS
[2019-04-06 21:08] VITALS: BP 112/77
--- NOTE | 2019-04-06 21:10 | NUR ---
ED Nurse Note: urine specimen sent to lab
[2019-04-06 21:44] LABS: APPEARANCE,URINE SLIGHTLY CLOUDY; BILIRUBIN, URINE NEGATIVE (NEGATIVE); COLOR,URINE PALE YELLOW; GLUCOSE, URINE (UA) NEGATIVE (NEGATIVE); KETONES,URINE NEGATIVE (NEGATIVE); LEUKOCYTE ESTERASE ,URINE 3+ (NEGATIVE); NITRITE,URINE NEGATIVE (NEGATIVE); PH,URINE 6 (4.5-8.0); PROTEIN,URINE NEGATIVE (NEGATIVE); UROBILINOGEN,URINE NORMAL MG/DL (0.0-1.0)
[2019-04-06] MEDS ORDERED: CEPHALEXIN500 MG ORAL (22:00)
[2019-04-06 22:10] VITALS: BP 115/73
--- NOTE | 2019-04-06 22:10 | NUR ---
ER DISCHARGE NOTE: Patient is cleared to be discharged per ERMD, pt is aox4, on room air, with stable vital signs. pt was given dc and prescription instructions, pt was able to verbalize understanding, pt id band removed. pt is able to ambulate with steady gait. pt took all belongings.
--- NOTE | 2019-04-06 23:00 | Emergency Room Report ---
History of Present Illness General Chief Complaint: Female Urogenital Problems Source: Patient Present Illness HPI Patient is a 28-year-old female who presented after increased yellow vaginal discharge. patient reports having recent unprotected sex. She states that she had not been having any dysuria. She reports having which she feels may be a yeast infection. She does not report any recent antibiotics. Allergies: Coded Allergies: No Known Allergies (Unverified , 07/31/18) Patient History Past Medical History: see triage record Last Menstrual Period: 03/19/19 Now: No : 1 Para: 0 Reviewed Nursing Documentation: PMH: Agreed; PSxH: Agreed Nursing Documentation-PMH Past Medical History: No Stated History Review of Systems All Other Systems: negative except mentioned in HPI Physical Exam Vital Signs Date Time Temp Pulse Resp B/P (MAP) Pulse Ox O2 Delivery O2 Flow Rate FiO2 04/06/19 21:02 97.9 83 18 112/77 (89) 97 Room Air General Appearance: well appearing, no apparent distress, alert, GCS 15 Head: normocephalic, atraumatic ENT: hearing grossly normal, normal voice Neck: full range of motion, supple Respiratory: lungs clear, no respiratory distress, speaking full sentences Cardiovascular #1: normal inspection Gastrointestinal: normal inspection Musculoskeletal: normal inspection Neurologic: normal inspection, alert, oriented x3, responsive, normal gait Psychiatric: mood/affect normal Skin: no rash Medical Decision Making Diagnostic Impression: Primary Impression: Vaginal discharge Additional Impression: Urinary tract infection ER Course Present for vaginal discharge. Differential diagnosis include was not limited to yeast infection, bacterial vaginosis, trichomonas, pelvic inflammatory disease among others. Patient has a benign exam and does not appear to require any further imaging or laboratory testing at this time. Patient was offered a pelvic exam which she declined. Patient was noted to have bacteriuria. Patient was given prescription for Keflex. Patient stated she wishes to go elsewhere to get definitive testing.Patient appears to be stable for outpatient evaluation. Patient was advised to return if she is worse. Labs Test 04/06/19 21:10 Urine Color Pale yellow Urine Appearance Slightly cloudy Urine pH 6 (4.5-8.0) Urine Specific [place] 1.015 (1.005-1.035) Urine Protein Negative (NEGATIVE) Urine Glucose (UA) Negative (NEGATIVE) Urine Ketones Negative (NEGATIVE) Urine Blood 1+ (NEGATIVE) Urine Nitrite Negative (NEGATIVE) Urine Bilirubin Negative (NEGATIVE) Urine Urobilinogen Normal MG/DL (0.0-1.0) Urine Leukocyte Esterase 3+ (NEGATIVE) Urine RBC 2-4 /HPF (0 - 2) Urine WBC 20-30 /HPF (0 - 2) Urine Squamous Epithelial Cells Moderate /LPF (NONE/OCC) Urine Bacteria Moderate /HPF (NONE) Urine HCG, Qualitative Negative (NEGATIVE) Last Vital Signs Date Time Temp Pulse Resp B/P (MAP) Pulse Ox O2 Delivery O2 Flow Rate FiO2 04/06/19 22:10 98.4 79 18 115/73 97 Room Air Status: improved Disposition: HOME, SELF-CARE Condition: Stable Scripts Cephalexin* (KEFLEX*) 500 Mg Capsule 500 MG ORAL EVERY 6 HOURS, #28 CAP Prov: Pablo Lim MD 04/06/19 Referrals: NON PHYSICIAN (PCP) Patient Instructions: Urinary Tract Infection Additional Instructions: Follow up for definitive testing of vaginal discharge. Return if worse. Pablo Lim MD Apr 06, 2019 23:00
== END 2019-04-06 22:09 | disposition home or self-care (01) ==
LOC: EMR 21:24
DX: N89.8 Other specified noninflammatory disorders of vagina (principal); N39.0 Urinary tract infection, site not specified
CPT/HCPCS: 81003; 81025; 87086; 99283

== ENCOUNTER 2019-06-13 01:30 | Emergency (ER) | payer MEDICAID ==
[~2019-06-13] VITALS: Ht 162.6 cm; Wt 89.4 kg
[~2019-06-13 01:30] MED LIST changes: +CEPHALEXIN500 MG ORAL
[2019-06-13 01:36] VITALS: BP 128/89
--- NOTE | 2019-06-13 01:36 | NUR ---
ED Nurse Note: Patient walked in to ER from home due to cough x5 days. As per patient she has taken OTC Nyquil but doesnt alleviate the cough. No stated medical history. Alert and oriented, verbally responsive. Afebrile. No SOB. Breathing even and unlabored. VSS.
[2019-06-13] MEDS ORDERED: PROMETHAZINE-C118 M1 ORAL (01:58)
--- NOTE | 2019-06-13 01:58 | Emergency Room Report ---
History of Present Illness General Chief Complaint: Upper Respiratory Illness Source: Patient Present Illness HPI 29-year-old female with no past medical history. She presents with chief complaint of cough. This is ongoing for about a week now. Initially with runny nose and congestion. That got better. Now she has this lingering cough. Usually at night when she go to sleep. Usually when she lay down. During the day when she is upright she is fine. Denies any fever chills. Cough is nonproductive nature. Denies any other complaint. Allergies: Coded Allergies: No Known Allergies (Unverified , 07/31/18) Patient History Past Medical History: see triage record, old chart reviewed Past Surgical History: none Pertinent Family History: none Social History: Denies: smoking Last Menstrual Period: 05/25/19 Now: No Immunizations: other Reviewed Nursing Documentation: PMH: Agreed; PSxH: Agreed Nursing Documentation-PMH Past Medical History: No Stated History Review of Systems Eye: Denies: eye pain, blurred vision ENT: Denies: ear pain, nose congestion, throat swelling Respiratory: Reports: cough; Denies: shortness of breath Cardiovascular: Denies: chest pain, palpitations Gastrointestinal: Denies: abdominal pain, diarrhea, nausea, vomiting Musculoskeletal: Denies: back pain, joint pain Skin: Denies: rash Neurological: Denies: headache, numbness Endocrine: Denies: increased thirst, increased urine Hematologic/Lymphatic: Denies: easy bruising All Other Systems: negative except mentioned in HPI Physical Exam Vital Signs Date Time Temp Pulse Resp B/P (MAP) Pulse Ox O2 Delivery O2 Flow Rate FiO2 06/13/19 01:32 97.9 76 16 128/89 (102) 98 Room Air Vitals normal Sp02 EP Interpretation: reviewed, normal General Appearance: well appearing, no apparent distress, alert Head: normocephalic, atraumatic Eyes: bilateral eye PERRL, bilateral eye EOMI ENT: hearing grossly normal, normal pharynx Neck: full range of motion, supple, no meningismus Respiratory: chest non-tender, lungs clear, normal breath sounds Cardiovascular #1: regular rate, rhythm, no murmur Gastrointestinal: normal bowel sounds, non tender, no mass, no organomegaly, no bruit, non-distended Musculoskeletal: back normal, gait/station normal, normal range of motion Psychiatric: mood/affect normal Medical Decision Making Diagnostic Impression: Primary Impression: Cough ER Course Sent has a cough. This is most likely a post viral cough. No evidence of strep throat. Most likely a postnasal drip. No evidence of ACS, PE, dissection , pneumonia to name a few. Will discharge home with symptomatic treatment. Last Vital Signs Date Time Temp Pulse Resp B/P (MAP) Pulse Ox O2 Delivery O2 Flow Rate FiO2 06/13/19 01:36 76 16 Room Air 06/13/19 01:36 97.9 128/89 98 Status: unchanged Disposition: HOME, SELF-CARE Condition: Stable Scripts Codeine/Promethazine Hcl* (PROMETHAZINE-CODEINE SYRUP*) 118 Ml Syrup 5 ML ORAL Q6H PRN for For Cough, #118 ML 0 Refills Prov: Toby Birmingham MD 06/13/19 Patient Instructions: Upper Respiratory Infection, Adult Additional Instructions: Follow-up with your doctor in 7 days. Return if symptoms worsen. Toby Birmingham MD Jun 13, 2019 01:58
[2019-06-13 02:04] VITALS: BP 128/89
--- NOTE | 2019-06-13 02:04 | NUR ---
ED Nurse Note: Pt cleared by ERMD for discharge. DC instructions/prescription was given and explained to pt and verbalized understanding of teachings. All medical devices such as ID band removed. Pt is AAO x4, ambulatory and left with all personal belongings.
== END 2019-06-13 02:04 | disposition home or self-care (01) ==
LOC: EMR 02:00
DX: R05 Cough (principal)
CPT/HCPCS: 99282